=== PATIENT | male | born 1995 | race African-American/Black ===

== ENCOUNTER 2016-11-11 21:42 | Emergency (ER) | payer MEDICAID ==
[2016-11-11] MEDS ORDERED: OPTIRAY 350 100 ML VIAL HMH IV ONE (21:43)
[2016-11-12] MEDS ORDERED: KETOROLAC 30 MG/ML VIAL ONE (00:44)
[2016-11-12] MEDS ORDERED: SODIUM CHLORIDE 0.9% 1,000 ML ONE (00:44)
[2016-11-12] MEDS ORDERED: ONDANSETRON 4 MG VIAL ONE (01:44)
== END 2016-11-12 02:15 | disposition home or self-care (01) ==
LOC: ER 21:42
DX: R10.32 Left lower quadrant pain (principal)
CPT/HCPCS: 36415; 74177; 80053; 81001; 83690; 85025; 96361; 96374; 96375